=== PATIENT | female | born 1950 | race Caucasian/White ===

== ENCOUNTER 2018-11-11 16:52 | Outpatient (CLI) | payer MEDICARE, BC, SELFPAY ==
--- NOTE | 2018-11-11 16:22 | DI.RAD_ITS ---
SYMPTOM/DIAGNOSIS: RIGHT WRIST PAIN, M25.531 RIGHT HAND: The bony structures are normally mineralized. The joint spaces are intact. No davonte-articular erosions or soft tissue calcifications are identified. Note is made of mild degenerative changes involving the carpal, metacarpal joints.
--- NOTE | 2018-11-11 16:25 | DI.RAD_ITS ---
SYMPTOM/DIAGNOSIS: RIGHT WRIST PAIN M25.531 RIGHT FOREARM: The bony structures are normally mineralized. There is mild DJD involving the wrist and elbow. There is no evidence of a fracture or dislocation.
== END 2018-11-11 17:12 ==
PROVIDERS: PCP Internal Medicine; Visit Provider Nurse Practitioner
DX: M25.531 Pain in right wrist (principal); M19.021 Primary osteoarthritis, right elbow; M18.11 Unilateral primary osteoarthritis of first carpometacarpal joint, right hand; M19.031 Primary osteoarthritis, right wrist
CPT/HCPCS: 73090; 73130

== ENCOUNTER 2018-12-11 15:52 | Outpatient (REF) | payer MEDICARE, BC, SELFPAY ==
[2018-12-11 21:11] LABS: HCT 35.5 % (36.0-46.0); Mean Corp. HGB Concentration 33.8 g/dL (32.0-36.0); Mean Corpuscular Hemoglobin 32.9 pg (27.0-33.0); Mean Corpuscular Volume 97.3 fL (80-95); Mean Platelet Volume 10.5 fL (8.0-11.0); Platelet Count 191 x1000/uL (130-400); RBC 3.65 m/cumm (4.00-5.20); RBC Distribution Width 12.5 % (11.7-14.6); White Blood Cell Count 3.74 k/cumm (4.4-10.8)
[2018-12-11 21:18] LABS: Hemoglobin A1C 5.6 % (4.5-6.2)
[2018-12-11 21:27] LABS: ALT 19 U/L (12-78); AST 21 U/L (15-37); Alkaline Phosphatase 96 U/L (46-116); Anion Gap 8.8 mmol/L (3-11); BUN 22 mg/dL (7-18); Bilirubin, Total 0.3 mg/dL (0.2-1.0); CO2 29.2 mmol/L (21.0-32.0); CREATININE 1.11 mg/dL (0.55-1.02); Calcium 8.9 mg/dL (8.5-10.1); Chloride 102 mmol/L (98-107); Estimated GFR 48.74 (mL/min/1.73m2); Glucose 90 mg/dL (70-100); Magnesium 2.1 mg/dL (1.8-2.4); Sodium 140 mmol/L (136-145); TSH (W/Ref FT4) 2.39 uIU/mL (0.358-3.74); Total Protein 6.9 g/dL (6.4-8.2)
== END 2018-12-11 16:12 ==
LOC: NCHCN 15:52
PROVIDERS: PCP Internal Medicine; Visit Provider Family Medicine
DX: R63.5 Abnormal weight gain (principal); R53.83 Other fatigue; R42 Dizziness and giddiness
CPT/HCPCS: 80053; 85027; 83036; 83735; 84443

== ENCOUNTER 2019-01-14 16:32 | Outpatient (CLI) | payer MEDICARE, BC, SELFPAY ==
--- NOTE | 2019-02-17 11:24 | CER_ITS ---
DATE OF DICTATION: February 17, 2019 [employer] MONITOR REPORT MONITOR IN PLACE: 30 days, January 14 - February 12, 2019 Baseline rhythm sinus. No atrial fibrillation. Ventricular ectopy < 1%. Nine stable events, no serious or critical events. Six stable events occurring during sinus rhythm, symptoms including tiredness, fatigue, lightheadedne ss, dizziness.
== END 2019-01-14 16:52 ==
PROVIDERS: PCP Internal Medicine; Visit Provider Family Medicine
DX: R42 Dizziness and giddiness (principal); I49.3 Ventricular premature depolarization
CPT/HCPCS: 93270

== ENCOUNTER 2019-02-17 01:12 | Outpatient (CLI) | payer MEDICARE, BC, SELFPAY ==
--- NOTE | 2019-02-17 15:55 | DI.MAMMO_ITS ---
SYMPTOM/DIAGNOSIS: SCREENING MAMMO Z12.31 BILATERAL SCREENING MAMMOGRAM: Mammograms were interpreted according to the usual protocol including computer analysis with CAD system, tomosynthesis and C view imaging. Comparison is made with exams from 2012 and 2015. The breasts are composed of scattered fibroglandular densities, breast density category B. No suspicious masses or suspicious microcalcifications are seen. There has been no significant change. IMPRESSION: Category 1, negative mammogram. Yearly screening mammography is recommended. Breast density category B. SA ASSESSMENT OF FINDINGS: Negative. Category 1. Patient will receive a letter notifying them of these results. BI-RADS category B. There are scattered areas of fibroglandular density.
== END 2019-02-17 01:32 ==
PROVIDERS: PCP Internal Medicine; Visit Provider Family Medicine
DX: Z12.31 Encounter for screening mammogram for malignant neoplasm of breast (principal)
CPT/HCPCS: 0298T; 77063; 77067

== ENCOUNTER 2020-12-27 00:58 | Outpatient (CLI) | payer MEDICARE, BC, SELFPAY ==
--- NOTE | 2020-12-27 | DI.NM_ITS ---
APPROVED REPORT Exam: Exercise Treadmill Patient Location: Out-Patient Room/Bed: Stress Nurse: Jennifer Mazariegos RN Ordering Provider:MILAGROS NIÑO, Contact Number: [phone] BMI: 24.20 Baseline Rhythm: Sinus Rhythm Indications: Exertional dyspnea. Medical History Medical History: HTN Cardiac Medications: Losartan Allergies: No known drug allergies Cardiac Risk Factors: FHX of CAD, HTN Previous Cardiac Procedures: None Pretest Chest Pain Characteristics: No chest pain Exercise History: Sedentary Physical Disabilities: None Lung Sounds: Clear to auscultation, diminished LLL Heart Sounds: Regular Stress Test Details Test: Exercise stress testing was performed using a Benjamín protocol. Nuclear Acquisition: Rest Tc-99m/Stress Tc-99m 1 day Rest Isotope: Tc-99m Sestamibi. Dose: 10.6 Date: 12/27/20 Injection Time: 0820 Stress Isotope: Tc-99m Sestamibi. Dose: 31.8 Date: 12/27/20 Injection Time: 1110 HR Resting HR Supine: 66 bpm Max Heart Rate (APMHR): 149.937517 bpm Resting HR Standin bpm Target HR (85% APMHR): 126.817810 bpm Max HR Achieved: 146 bpm % of APMHR: 97.99 Recovery HR: 86 bpm HR response to stress: Accelerated HR response to stress BP Resting BP Supine: 148/88 mmHg Resting BP Standin/90 mmHg Max BP: 162/86 mmHg Recovery BP: 150/82 mmHg BP response to stress: Normal blood pressure response to stress. ECG Resting ECG: Sinus Rhythm Ectopy: None Stress ECG: Sinus Tachycardia ST Change: No significant ST segment changes noted Arrhythmia: None Recovery ECG: Sinus Rhythm Recovery ST Change: No significant ST segment changes noted, Recovery Arrhythmia: frequent PACs, PVCs, 4 beat VT Clinical Reason for Termination: Fatigue Stress Symptoms: Dyspnea, General Fatigue Exercise duration: 04 min07 sec Highest Stage Reached: Stage 2: 2.5 mph at 12% grade. Exercise capacity: 5.97 METs Rate Pressure Product: 29255 Stress ECG Conclusion 1. Resting electrocardiogram was normal 2. Patient exercised on the Benjamín protocol and completed a workload of 5.97 METS, limited by shortnes s of breath and fatigue 3. Accelerated heart rate response to exercise. Normal blood pressure response to exercise. The pat ient achieved 97% of predicted heart rate for age 4. Electrocardiographically there was no evidence of myocardial ischemia 5. Atrial and ventricular ectopic beats, 1 4 beat run of nonsustained ventricular tachycardia were no angela in recovery Stress Test Summary STAGE Time (mins) Speed (mph) Grade (%) HR BP SYMPTOMS METS Supine 66 148/88 Standing 85 144/90 1 3 1.7 10 135 156/82 4.6 2 6 2.5 12 SpO2 91% 7 1 min recovery 133 162/86 SpO2 97% 3 min recovery 98 158/84 6 min recovery 86 150/82 MPI Conclusion Normal myocardial perfusion without evidence of ischemia or prior infarction EF 67% Radiologist Interpretation Radiologist Interpretation by: Tripp Martin MD Interpretation Date/Time: 12/27/2020 16:01:46
== END 2020-12-27 01:18 ==
PROVIDERS: PCP Family Medicine; Visit Provider Family Medicine
DX: R06.09 Other forms of dyspnea (principal); Z82.49 Family history of ischemic heart disease and other diseases of the circulatory system; I10 Essential (primary) hypertension; I49.1 Atrial premature depolarization; I49.3 Ventricular premature depolarization; I47.2 Ventricular tachycardia
CPT/HCPCS: 78452; 93016; 93018; 93017

== ENCOUNTER 2021-01-31 12:09 | Outpatient (REF) | payer MEDICARE, BC, SELFPAY ==
[2021-01-31 13:09] LABS: Abs Immature Grans 0.01 10^3/uL (0.0-0.06); Absolute Basophil Count 0.05 10^3/uL (0.0-0.2); Absolute Eosinophil Count 0.12 10^3/uL (0.0-0.7); Absolute Lymphocyte Count 0.91 10^3/uL (1.2-3.4); Absolute Monocyte Count 0.36 10^3/uL (0.1-0.8); Absolute Neutrophil Count 1.43 10^3/uL (1.2-6.7); Basophils % 1.7; Eosinophils % 4.2; HCT 35.5 % (36.0-46.0); HGB 11.7 g/dL (11.2-15.7); Immature Grans % 0.3; Lymphocytes % 31.6; MCH 32.4 pg (27.0-33.0); MCV 98.3 fL (80-95); MPV 10.2 fL (8.0-11.0); Monocytes % 12.5; Neutrophils % 49.7; Nucleated RBC 0 %; Platelet Count 176 10^3/uL (130-400); RBC 3.61 10^6/uL (3.93-5.22); RDW 12.3 % (11.7-14.6); RDW-SD 44.5 fL; WBC 2.88 10^3/uL (4.4-10.8)
[2021-01-31 13:23] LABS: ALT 21 U/L (14-59); AST 22 U/L (15-37); Alkaline Phosphatase 91 U/L (46-116); Anion Gap 6.2 mmol/L (3-11); BUN 25 mg/dL (7-18); Bilirubin, Total 0.6 mg/dL (0.2-1.0); CO2 29.8 mmol/L (21.0-32.0); CREATININE 1.1 mg/dL (0.55-1.02); Calcium 9.1 mg/dL (8.5-10.1); Calculated LDL 94 mg/dL (<100); Chloride 108 mmol/L (98-107); Cholesterol 213 mg/dL (<200); Estimated GFR 48.96 (mL/min/1.73m2); Glucose 88 mg/dL (74-106); HDL Cholesterol 113 mg/dL (40-60); Potassium 5.1 mmol/L (3.5-5.1); Sodium 144 mmol/L (136-145); Total Protein 6.9 g/dL (6.4-8.2); Triglyceride 31 mg/dL (<150)
== END 2021-01-31 12:10 | disposition home or self-care (01) ==
LOC: NCHCN 12:09
PROVIDERS: PCP Family Medicine; Visit Provider Family Medicine
DX: E78.5 Hyperlipidemia, unspecified (principal); I10 Essential (primary) hypertension
CPT/HCPCS: 80053; 80061; 85025

== ENCOUNTER 2021-05-12 12:20 | Outpatient (CLI) | payer MEDICARE, BC, SELFPAY ==
--- NOTE | 2021-05-12 08:15 | DI.US_ITS ---
Exam(s) US LOWER EXTREMITY VENOUS RT EXAM: US LOWER EXTREMITY VENOUS RT CLINICAL HISTORY: leg pain, right M79.604 PAIN RT LEG TECHNIQUE: Right lower extremity venous ultrasound performed using grayscale, color-flow, and spectr al Doppler analysis. COMPARISON: No exams were available for comparison FINDINGS: The right common femoral, femoral and popliteal veins demonstrate normal compressibility, augmentatio n, and color Doppler. The posterior tibial veins are patent. The saphenofemoral junction is unremark able. There is no evidence of a Rodriguez cyst. The soft tissues are unremarkable. IMPRESSION: No evidence of DVT or superficial thrombophlebitis. DATA REPOSITORY:
== END 2021-05-12 12:40 ==
DX: M79.604 Pain in right leg (principal)
CPT/HCPCS: 93971

== ENCOUNTER 2021-09-02 00:56 | Outpatient (CLI) | payer MEDICARE, BC, SELFPAY ==
--- NOTE | 2021-09-02 06:30 | DI.US_ITS ---
Exam(s) US LOWER EXTREMITY VENOUS RT EXAM: US LOWER EXTREMITY VENOUS RT CLINICAL HISTORY: RIGHT DVT versus cellulitis,SWELLING,R22.41 TECHNIQUE: Right lower extremity venous ultrasound performed using grayscale, color-flow, and spectr al Doppler analysis. COMPARISON: US US LOWER EXTREMITY VENOUS RT from 05/12/2021 FINDINGS: The right common femoral, femoral and popliteal veins demonstrate normal compressibility, augmentatio n, and color Doppler. The posterior tibial veins are patent. The saphenofemoral junction is unremark able. There is no evidence of a Rodriguez cyst. The soft tissues are unremarkable. Multiple varicose ve ins in the right calf which demonstrate compressibility and blood flow. IMPRESSION: No DVT. DATA REPOSITORY:
== END 2021-09-02 01:16 ==
DX: R22.41 Localized swelling, mass and lump, right lower limb (principal); I83.891 Varicose veins of right lower extremity with other complications
CPT/HCPCS: 93971

== ENCOUNTER 2021-09-22 02:42 | Outpatient (CLI) | payer MEDICARE, BC, SELFPAY ==
--- NOTE | 2021-09-22 07:45 | DI.MAMMO_ITS ---
Exam(s) MAMMO SCREENING EXAM: MAMMO SCREENING CLINICAL HISTORY: screening,Z12.39 TECHNIQUE: Bilateral full field digital CC and MLO mammographic images were obtained with 3D tomosyn thesis and utilizing computer aided detection (CAD). COMPARISON: Available for comparison. FINDINGS: Masses/Architectural Distortion: None seen. Microcalcifications: No suspicious pleomorphic-type are seen. Skin Thickening/Nipple Retraction: None. IMPRESSION: 1. No significant interval change with no specific features of malignancy noted. 2. Unless there is more urgent need, screening mammography is recommended, as per [employer] guidelines. BI-RADS Category 1 - Negative Breast Density - Category B - Scattered areas of fibroglandular density Breast density category C or D implies that the patient has dense breast tissue. Dense breast tissue is very common and is not abnormal but dense breast tissue can make it harder to find cancer on a ma mmogram. Also, dense breast tissue may increase their breast cancer risk. This information about the result of the mammogram report was provided to the patient to raise their awareness. Use this report when you speak with the patient about their risks for breast cancer, which includes their family hist ory. At that time, you may recommend for more screening tests (Ultrasound or MRI) as they might be us eful based on their risk. A negative radiographic report should not delay biopsy if a dominant or clinically suspicious mass is present. Up to ten percent of cancers are not identified on mammography. A negative report may reinforce clinical impression. Adenosis and dense breasts may obscure an underlying neoplasm. False positive reports average 6 to 10%. Patient will receive a letter notifying them of these results.
== END 2021-09-22 03:02 ==
DX: Z12.31 Encounter for screening mammogram for malignant neoplasm of breast (principal)
CPT/HCPCS: 77063; 77067

== ENCOUNTER 2022-10-17 15:54 | Outpatient (REF) | payer MEDICARE, BC, SELFPAY ==
[2022-10-17 12:48] LABS: HCT 36.2 % (36.0-46.0); MCH 32.3 pg (27.0-33.0); MCHC 33.1 % (32.0-36.0); MCV 97 fL (80-95); MPV 9.8 fL (8.0-11.0); Platelet Count 184 10^3/uL (130-400); RBC 3.72 10^6/uL (3.93-5.22); RDW 12.1 % (11.7-14.6); RDW-SD 43.7 fL; WBC 2.76 10^3/uL (4.4-10.8)
[2022-10-17 13:16] LABS: ALT 16 U/L (14-59); AST 22 U/L (15-37); Albumin 4.2 g/dL (3.4-5.0); Alkaline Phosphatase 94 U/L (46-116); Anion Gap 7.6 mmol/L (3-11); BUN 30 mg/dL (7-18); Bilirubin, Total 0.4 mg/dL (0.2-1.0); CO2 29.4 mmol/L (21.0-32.0); CREATININE 0.9 mg/dL (0.55-1.02); Calcium 9.4 mg/dL (8.5-10.1); Chloride 103 mmol/L (98-107); Estimated GFR 67.92 (mL/min/1.73m2); Glucose 85 mg/dL (74-106); Potassium 4.5 mmol/L (3.5-5.1); Sodium 140 mmol/L (136-145)
[2022-10-18 10:03] LABS: Lab Add On Test DONE
[2022-10-18 10:08] LABS: Absolute Basophil Count 0.04 10^3/uL (0.0-0.2); Absolute Eosinophil Count 0.09 10^3/uL (0.0-0.7); Absolute Lymphocyte Count 0.95 10^3/uL (1.2-3.4); Absolute Neutrophil Count 1.49 10^3/uL (1.2-6.7); Basophils % 1.4; Eosinophils % 3.1; Lymphocytes % 33.1; Monocytes % 10.5; Neutrophils % 51.9
== END 2022-10-17 15:55 | disposition home or self-care (01) ==
LOC: LBN 15:54
PROVIDERS: PCP Nurse Practitioner Family; Visit Provider Nurse Practitioner Family
DX: I10 Essential (primary) hypertension (principal); D64.9 Anemia, unspecified; D72.819 Decreased white blood cell count, unspecified
CPT/HCPCS: 80053; 85027; 85007

== ENCOUNTER 2023-08-28 02:41 | Outpatient (CLI) | payer MEDICARE, BC, SELFPAY ==
[2023-08-28 10:00] LABS: Absolute Basophil Count 0.04 10^3/uL (0.0-0.2); Absolute Eosinophil Count 0.14 10^3/uL (0.0-0.7); Absolute Lymphocyte Count 1.04 10^3/uL (1.2-3.4); Absolute Monocyte Count 0.38 10^3/uL (0.1-0.8); Absolute Neutrophil Count 1.53 10^3/uL (1.2-6.7); Basophils % 1.3; Eosinophils % 4.5; HCT 37.4 % (36.0-46.0); HGB 12.4 g/dL (11.2-15.7); Lymphocytes % 33.2; MCH 32.5 pg (27.0-33.0); MCHC 33.2 % (32.0-36.0); MCV 98 fL (80-95); MPV 9.3 fL (8.0-11.0); Monocytes % 12.1; Neutrophils % 48.9; Platelet Count 187 10^3/uL (130-400); RBC 3.82 10^6/uL (3.93-5.22); RDW 12.2 % (11.7-14.6); RDW-SD 44.2 fL; WBC 3.13 10^3/uL (4.4-10.8)
[2023-08-28 10:20] LABS: ALT 22 U/L (14-59); AST 18 U/L (15-37); Albumin 3.8 g/dL (3.4-5.0); Alkaline Phosphatase 77 U/L (46-116); Anion Gap 7.2 mmol/L (3-11); BUN 28 mg/dL (7-18); Bilirubin, Total 0.5 mg/dL (0.2-1.0); CO2 29.8 mmol/L (21.0-32.0); CREATININE 1.1 mg/dL (0.55-1.02); Calcium 9.3 mg/dL (8.5-10.1); Calculated LDL 114 mg/dL (<100); Chloride 103 mmol/L (98-107); Cholesterol 240 mg/dL (<200); Estimated GFR 53.06 (mL/min/1.73m2); Glucose 96 mg/dL (74-106); HDL Cholesterol 121 mg/dL (40-60); Potassium 4.3 mmol/L (3.5-5.1); Sodium 140 mmol/L (136-145); Total Protein 7.2 g/dL (6.4-8.2); Triglyceride 28 mg/dL (<150)
== END 2023-08-28 02:42 | disposition home or self-care (01) ==
LOC: LBO 02:42
PROVIDERS: PCP Nurse Practitioner Family; Visit Provider Nurse Practitioner Family
DX: E78.5 Hyperlipidemia, unspecified (principal); D64.9 Anemia, unspecified
CPT/HCPCS: 36415; 80053; 80061; 85025

== ENCOUNTER → 2023-12-17 04:39 | Outpatient (CLI) | payer MEDICARE, BC, SELFPAY ==
--- NOTE | 2023-12-17 08:00 | DI.DEXA_ITS ---
Exam(s) XR DEXA BONE DENSITY W/WO KARLY EXAM: XR DEXA BONE DENSITY W/WO KARLY CLINICAL HISTORY: screening for osteoporosis in postmenopausal woman,z78.0 TECHNIQUE: COMPARISON: Comparison examination is 12/04/2007. FINDINGS: Lateral Spine Image: Unremarkable. No compression deformities identified. Left hip: Total T-Score: -2.4. This compares to -2.6 on the prior examination. Total Z-Score: -0.7 T- and Z-scores: Findings are consistent with osteopenia. There is osteoporosis in the femoral neck with a T-score of -3.1. Lumbar Spine: Total T-Score: -2.6. This compares to -1.4 on the prior examination. Total Z-Score: -0.3 T- and Z-scores: Findings are consistent with osteoporosis. IMPRESSION: Osteoporosis in the lumbar spine and femoral neck.
--- NOTE | 2023-12-17 08:00 | DI.MAMMO_ITS ---
Exam(s) MAMMO SCREENING EXAM: MAMMO SCREENING CLINICAL HISTORY: screening,z12.39 TECHNIQUE: Bilateral full field digital CC and MLO mammographic images were obtained with 3D tomosyn thesis and utilizing computer aided detection (CAD). COMPARISON: Available for comparison. FINDINGS: Masses/Architectural Distortion: None seen. Microcalcifications: No suspicious pleomorphic-type are seen. Skin Thickening/Nipple Retraction: None. IMPRESSION: 1. No significant interval change with no specific features of malignancy noted. 2. Unless there is more urgent need, screening mammography is recommended, as per [employer] guidelines. BI-RADS Category 1 - Negative Breast Density - Category B - Scattered areas of fibroglandular density Breast density category C or D implies that the patient has dense breast tissue. Dense breast tissue is very common and is not abnormal but dense breast tissue can make it harder to find cancer on a ma mmogram. Also, dense breast tissue may increase their breast cancer risk. This information about the result of the mammogram report was provided to the patient to raise their awareness. Use this report when you speak with the patient about their risks for breast cancer, which includes their family hist ory. At that time, you may recommend for more screening tests (Ultrasound or MRI) as they might be us eful based on their risk. A negative radiographic report should not delay biopsy if a dominant or clinically suspicious mass is present. Up to ten percent of cancers are not identified on mammography. A negative report may reinforce clinical impression. Adenosis and dense breasts may obscure an underlying neoplasm. False positive reports average 6 to 10%. Patient will receive a letter notifying them of these results.
== END ==
PROVIDERS: PCP Nurse Practitioner Family; Visit Provider Nurse Practitioner Family
DX: Z78.0 Asymptomatic menopausal state (principal); Z12.31 Encounter for screening mammogram for malignant neoplasm of breast; E78.5 Hyperlipidemia, unspecified; Z13.820 Encounter for screening for osteoporosis; M81.0 Age-related osteoporosis without current pathological fracture
CPT/HCPCS: 77063; 77067; 77080

== ENCOUNTER 2023-12-20 11:14 | Outpatient (CLI) | payer MEDICARE, BC, SELFPAY ==
[2023-12-20 12:28] LABS: Anion Gap 8.6 mmol/L (3-11); BUN 25 mg/dL (7-18); CO2 28.4 mmol/L (21.0-32.0); Calcium 9.5 mg/dL (8.5-10.1); Chloride 103 mmol/L (98-107); Estimated GFR 59.12 (mL/min/1.73m2); Glucose 92 mg/dL (74-106); Potassium 4.6 mmol/L (3.5-5.1); Sodium 140 mmol/L (136-145)
[2023-12-20 20:25] LABS: Calculated LDL 105 mg/dL (<100); Cholesterol 248 mg/dL (<200); HDL Cholesterol 133 mg/dL (40-60); Triglyceride 50 mg/dL (<150)
[2023-12-20 20:35] LABS: Vitamin D 25 Total 23.7 ng/mL (30-100)
== END 2023-12-20 11:15 | disposition home or self-care (01) ==
LOC: LOS 11:14
PROVIDERS: PCP Nurse Practitioner Family; Referring Provider Nurse Practitioner Family; Visit Provider Nurse Practitioner Family
DX: E78.5 Hyperlipidemia, unspecified (principal); M81.0 Age-related osteoporosis without current pathological fracture
CPT/HCPCS: 36415; 80048; 80061; 82306

== ENCOUNTER 2024-10-01 00:10 | Outpatient (CLI) | payer MEDICARE, BC, SELFPAY ==
--- NOTE | 2024-10-01 10:26 | DI.RAD_ITS ---
Exam(s) XR FOOT LT COMPLETE EXAM: XR FOOT LT COMPLETE CLINICAL HISTORY: new bony protrusion around nail,pain lt great toe,m79.675. TECHNIQUE: 2D digital imaging was performed. Three views. COMPARISON: No exams were available for comparison FINDINGS: BONES: No acute fracture is present. No bony destructive lesion is seen. JOINTS: No dislocation present. SOFT TISSUE: There is some deformity and separation the toenail of the great toe. IMPRESSION: Toe nail abnormality of the great toe. No bony abnormality is seen. DATA REPOSITORY: RADIATION DOSE DELIVERED:
== END 2024-10-01 00:30 ==
LOC: DI 00:11
PROVIDERS: PCP Nurse Practitioner Family; Visit Provider Nurse Practitioner Family
DX: L60.8 Other nail disorders (principal)
CPT/HCPCS: 36415; 80048; 80061; 73630

== ENCOUNTER 2024-10-01 01:13 | Outpatient (CLI) | payer MEDICARE, BC, SELFPAY ==
[2024-10-01 10:32] LABS: Anion Gap 5.8 mmol/L (3-11); BUN 24 mg/dL (7-18); CO2 30.2 mmol/L (21.0-32.0); CREATININE 1.2 mg/dL (0.55-1.02); Calcium 9.4 mg/dL (8.5-10.1); Calculated LDL 94 mg/dL (<100); Chloride 104 mmol/L (98-107); Cholesterol 226 mg/dL (<200); Glucose 90 mg/dL (74-106); HDL Cholesterol 125 mg/dL (40-60); Potassium 4.1 mmol/L (3.5-5.1); Sodium 140 mmol/L (136-145); Triglyceride 38 mg/dL (<150)
== END 2024-10-01 01:14 | disposition home or self-care (01) ==
LOC: LBO 01:13
PROVIDERS: PCP Nurse Practitioner Family; Visit Provider Nurse Practitioner Family
DX: E78.5 Hyperlipidemia, unspecified (principal); I10 Essential (primary) hypertension
CPT/HCPCS: 36415; 80048; 80061

== ENCOUNTER → 2024-11-11 13:31 | Outpatient (BNVA) | payer MEDICARE, BC, SELFPAY | PROVIDERS: PCP Nurse Practitioner Family; Referring Provider Nurse Practitioner Family; Visit Provider Podiatrist | DX: I87.2 Venous insufficiency (chronic) (peripheral) (principal); L60.0 Ingrowing nail; M79.672 Pain in left foot; M79.675 Pain in left toe(s); L60.3 Nail dystrophy; B35.1 Tinea unguium | CPT/HCPCS: 11750; 99204 ==

== ENCOUNTER → 2024-12-10 11:14 | Outpatient (BNVA) | payer MEDICARE, BC, SELFPAY | PROVIDERS: PCP Nurse Practitioner Family; Referring Provider Nurse Practitioner Family; Visit Provider Podiatrist | DX: L60.0 Ingrowing nail (principal); M79.672 Pain in left foot; L60.3 Nail dystrophy; B35.1 Tinea unguium | CPT/HCPCS: 99213 ==

== ENCOUNTER → 2025-01-29 08:06 | Outpatient (BNVA) | payer MEDICARE, BC, SELFPAY | PROVIDERS: PCP Nurse Practitioner Family; Referring Provider Nurse Practitioner Family; Visit Provider Physical Therapy Assistant | DX: Z12.11 Encounter for screening for malignant neoplasm of colon (principal) | CPT/HCPCS: S0285 ==

== ENCOUNTER → 2025-04-13 13:35 | Outpatient (BNVA) | payer MEDICARE, BC, SELFPAY | PROVIDERS: PCP Nurse Practitioner Family; Referring Provider Nurse Practitioner Family; Visit Provider Podiatrist | DX: L60.3 Nail dystrophy (principal); B35.1 Tinea unguium; M79.674 Pain in right toe(s); M79.675 Pain in left toe(s); L60.0 Ingrowing nail; I87.2 Venous insufficiency (chronic) (peripheral) | CPT/HCPCS: 99213 ==

== ENCOUNTER 2025-06-17 09:01 | Emergency (ER) | payer MEDICARE, BC, SELFPAY ==
[2025-06-17] VITALS (10 sets, daily range): BP systolic 148–178; BP diastolic 79–98; PULSE 71–97; RESP 11–23; TEMP 36.6; O2SAT 98–100
--- NOTE | 2025-06-17 09:00 | RT.EKG_ITS ---
APPROVED REPORT Exam: Resting ECG Reason for Exam: High Blood Pressure Patient Location: E HR:96 bpm ECG Measurements Heart Rate 96 AXIS VA 192 P 82 QRSd 99 QRS -36 QT 356 T 43 QTc 449 Conclusion Sinus rhythm...normal P axis, V-rate 60- 99 Atrial premature complex...SV complex w/ short R-R interval Left axis deviation...QRS axis (-30,-90) Physician: No STEMI
[2025-06-17 09:43] LABS: Abs Immature Grans 0.00 10^3/uL (0.0-0.06); HCT 34.2 % (36.0-46.0); HGB 11.6 g/dL (11.2-15.7); Immature Grans % 0.0 %; MCH 32.8 pg (27.0-33.0); MCHC 33.9 % (32.0-36.0); MCV 97 fL (80-95); MPV 9.4 fL (8.0-11.0); Platelet Count 148 10^3/uL (130-400); RBC 3.54 10^6/uL (3.93-5.22); RDW 11.9 % (11.7-14.6); RDW-SD 42.2 fL; WBC 2.73 10^3/uL (4.4-10.8)
[2025-06-17 10:04] LABS: ALT 20 U/L (14-59); AST 22 U/L (15-37); Albumin 3.8 g/dL (3.4-5.0); Alkaline Phosphatase 83 U/L (46-116); Anion Gap 9.2 mmol/L (3-11); BUN 25 mg/dL (7-18); Bilirubin, Total 0.6 mg/dL (0.2-1.0); CO2 26.8 mmol/L (21.0-32.0); Calcium 9.0 mg/dL (8.5-10.1); Chloride 105 mmol/L (98-107); Estimated GFR 58.75 (mL/min/1.73m2); Glucose 98 mg/dL (74-106); Magnesium 2.1 mg/dL (1.8-2.4); Potassium 3.9 mmol/L (3.5-5.1); Sodium 141 mmol/L (136-145); TSH (W/Ref FT4) 4.19 uIU/mL (0.36-3.74); Total Protein 7.1 g/dL (6.4-8.2); Troponin I 7 ng/L (<or=51)
[2025-06-17 10:15] LABS: Glucose Negative (Negative)
--- NOTE | 2025-06-17 15:09 | ED.GENADUL_ITS ---
Discharge Plan Disposition Patient Disposition: Home Condition: Stable Discharge Details Clinical Impression: Elevated blood pressure reading Primary Care Provider: Eric Askew ED Provider: Sussy Stark Home Meds and New Rx's Prescriptions: Continued ketoconazole 2 % cream 1 applic topical DAILY Qty: 120 6RF Rx Instructions: Apply to toenails once daily losartan 50 mg tablet 50 mg PO DAILY Qty: 90 3RF Discharge Instructions Instructions: Heart Healthy Diet, Relaxation Techniques, High Blood Pressure ED Additional Instructions: Please follow-up with Eric at your scheduled appointment Your blood pressure is slightly elevated today but some of this is likely situational Please continue to take your losartan as prescribed Your labs today are very reassuring and you are in quite good health Please return should you develop chest pain, worsening shortness of breath, or should any new concerns arise Referrals: Eric Askew, [facility] [Primary Care Provider, Medicine] Discharge Data Discharge Date/Time-TO BE ENTERED AT DEPARTURE: 06/17/25 10:45 HPI General Date/Time Provider Initiated Documentation: 06/17/25 09:03 . HPI Narrative: This [place] 74-year-old female with history of hypertension presents with report of lightheadedness and elevated blood pressure today for which she presents. She denies any headache or overt dizziness. She states she saw Eric last week and was instructed to come back for a blood pressure recheck on Sunday. She has been taking her losartan as prescribed. She denies changes in diet or medicines. She denies any strength or sensation change. Denies speech or vision change Related Data Home Medications ?Medication ?Instructions ?Recorded ?Confirmed losartan 50 mg tablet 50 mg PO DAILY #90 tabs 09/2705/25/25 ketoconazole 2 % topical cream 1 applic topical DAILY #120 grams 12/10/24 05/25/25 Previous Rx's ?Medication ?Instructions ?Recorded losartan 50 mg tablet 50 mg PO DAILY #90 tabs 09/27 05/21 ketoconazole 2 % topical cream 1 applic topical DAILY #120 grams 12/10/24 Allergies Allergy/AdvReac Type Severity Reaction Status Date / Time No Known Allergies Allergy Unverified 05/25/25 09:09 General Stated Complaint: Dizzy/Sync DIANDRA: 3 Exam Narrative Exam Narrative: Oriented 74-year-old female in no acute distress pupils equal round reactive to light and accommodation cranial nerves II through XII intact no respiratory distress cardiac rate rhythm regular 1+ edema to bilateral lower extremities no rashes or lesions no abdominal tenderness appreciated Course Vital Signs Vital signs: Vital Signs Temperature 36.6 C 06/17/25 09:14 Pulse 97 H 06/17/25 09:14 Respiratory Rate 13 06/17/25 09:14 Blood Pressure 178/98 H 06/17/25 09:14 Pulse Oximetry 99 06/17/25 09:14 Temperature 36.6 C 06/17/25 09:14 Temperature Source Oral 06/17/25 09:14 Pulse 71 06/17/25 10:31 Pulse 72 06/17/25 10:31 Respiratory Rate 11 L 06/17/25 10:31 Respiratory Effort Normal 06/17/25 09:19 Blood Pressure 148/82 H 06/17/25 10:31 Blood Pressure Mean 107 06/17/25 10:31 Blood Pressure Position Sitting 06/17/25 09:14 Pulse Oximetry 100 06/17/25 09:50 Oxygen Delivery Method Room Air 06/17/25 09:14 Oxygen Flow Rate 0 06/17/25 09:14 Lab/Test Results Lab/Test Results: Laboratory Tests Range/Units 06/17/25 06/17/25 09:36 10:10 WBC (4.4-10.8) 10^3/uL 2.73 L RBC (3.93-5.22) 10^6/uL 3.54 L Hgb (11.2-15.7) g/dL 11.6 Hct (36.0-46.0) % 34.2 L MCV (80-95) fL 97 H MCH (27.0-33.0) pg 32.8 MCHC (32.0-36.0) % 33.9 RDW (11.7-14.6) % 11.9 Plt Count (130-400) 10^3/uL 148 MPV (8.0-11.0) fL 9.4 Immature Gran % % 0.0 Neutrophils % % 54.6 Lymphocytes % % 28.6 Monocytes % % 10.6 Eosinophils % % 5.1 Basophils % % 1.1 Nucleated RBC % (0.0-0.3) % 0.0 Absolute Neutrophils (1.2-6.7) 10^3/uL 1.49 Absolute Lymphocytes (1.2-3.4) 10^3/uL 0.78 L Absolute Monocytes (0.1-0.8) 10^3/uL 0.29 Absolute Eosinophils (0.0-0.7) 10^3/uL 0.14 Absolute Basophils (0.0-0.2) 10^3/uL 0.03 Sodium (136-145) mmol/L 141 Potassium (3.5-5.1) mmol/L 3.9 Chloride (98-107) mmol/L 105 Carbon Dioxide (21.0-32.0) mmol/L 26.8 Anion Gap (3-11) mmol/L 9.2 BUN (7-18) mg/dL 25 H Creatinine (0.55-1.02) mg/dL 1.0 Est GFR (CKD-EPI 2020) (mL/min/1.73m2) 58.75 Glucose (74-106) mg/dL 98 Calcium (8.5-10.1) mg/dL 9.0 Magnesium (1.8-2.4) mg/dL 2.1 Total Bilirubin (0.2-1.0) mg/dL 0.6 AST (15-37) U/L 22 ALT (14-59) U/L 20 Alkaline Phosphatase (46-116) U/L 83 Troponin I (<or=51) ng/L 7 Total Protein (6.4-8.2) g/dL 7.1 Albumin (3.4-5.0) g/dL 3.8 TSH (0.36-3.74) uIU/mL 4.19 H Free T4 (0.76-1.46) ng/dL 1.00 Urine Color (Yellow) Yellow Urine Clarity (Clear) Clear Urine pH (5-8) 5.5 Ur Specific Lares (1.005-1.025) 1.020 Urine Protein (Neg-Trace) mg/dL Negative Urine Ketones (Negative) mg/dL Negative Urine Blood (Negative) Negative Urine Nitrite (Negative) Negative Urine Bilirubin (Negative) Negative Urine Urobilinogen (Up to 0.2) mg/dL 0.2 Ur Leukocyte Esterase (Negative) Negative Urine Glucose (Negative) mg/dL Negative Medical Decision Making CBC, CMP, and remainder of labs all within baseline for patient although she does have leukopenia it appears to be her baseline, her BUN is 25 this also appears to be her baseline her TSH is just slightly elevated Assessment and plan: Will refer her back to Eric, her blood pressure slightly elevated today although some of this is likely situational as she has been taking her blood pressure currently. We discussed meditation techniques we also discussed potential adding hydrochlorothiazide however I think it is reasonable to wait until Eric sees this patient again in the outpatient setting because again I suspect there is an anxiety and situational component to this presentation. She has an appointment for follow-up on Sunday she is encouraged to keep this appointment return precautions reviewed and patient expressed understanding discharged home in stable condition blood pressure 148/82 at time of discharge home asymptomatic. 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 Sister Breast cancer Brother No problems noted. Sister No problems noted. Social History Smoking/Tobacco Use Status: Never Smoking risk assessment performed?: Yes Alcohol Intake: current Alcohol Intake frequency: holidays/special occasions only Alcohol type: wine Drug use: Never Substance use type: does not use Caregiver/Support person: No Household members: none Housing: house Communication Needs: None Do you need help understanding health information?: Never Pets and animals: No Sexually active: No Do you think of yourself as: straight/heterosexual Current gender identity: female What is your relationship status?: How often do you talk on the phone with friends or family?: three or more times per week How often do you get together with friends or relatives?: three or more times per week How often do you attend anabaptist or orthodox services?: 1-3 times per year Do you belong to any clubs or organized social groups?: yes Panel score (0-1 are the most socially isolated patients): 2 What type of physical activity do you participate in: walking Duration: 15-30 minutes/day Frequency: daily Sherin/Yazdanism: Scientologist Special sherin needs: No Seatbelt use: always Helmet use: Yes Helmet use: always Drive intox or ride w/intox bus driver supervisor: No
== END 2025-06-17 10:45 | disposition home or self-care (01) ==
PROVIDERS: Emergency Provider Physician Assistant; PCP Nurse Practitioner Family
DX: R42 Dizziness and giddiness (principal); I10 Essential (primary) hypertension
CPT/HCPCS: 36415; 80053; 93005; 99283; 81003; 83735; 84439; 84443; 84484; 85025; 93010

== ENCOUNTER → 2025-08-10 10:05 | Outpatient (BNVA) | payer MEDICARE, BC, SELFPAY | PROVIDERS: PCP Nurse Practitioner Family; Referring Provider Nurse Practitioner Family; Visit Provider Podiatrist | DX: L60.0 Ingrowing nail (principal); L60.3 Nail dystrophy; B35.1 Tinea unguium; I87.2 Venous insufficiency (chronic) (peripheral) | CPT/HCPCS: 99214 ==